=== PATIENT | male | born 1980 | race Caucasian/White ===

== ENCOUNTER 2018-11-19 21:38 | Emergency (ER) | payer SELFPAY ==
[~2018-11-19] VITALS: Ht 160 cm; Wt 67.1 kg
[2018-11-19 21:43] VITALS: BP 137/92
--- NOTE | 2018-11-19 22:15 | NUR ---
PT AMBULATED TO ER BED 04
--- NOTE | 2018-11-19 22:35 | NUR ---
PT TO ED WITH C/O EYE BURNING S/P SPRAY PAINT IN EYES. PT DENIES VISION LOSS. VISUAL ACUITY PERFOMRED. PT PLACED INTO BED, JULITA BORRERO. PMH--DENIES RX--DENIES
--- NOTE | 2018-11-19 22:45 | NUR ---
EYE WASH PERFROMED. PT TOLERATED WELL.
[2018-11-19 22:59] VITALS: BP 137/92
--- NOTE | 2018-11-19 22:59 | NUR ---
Patient discharged with v/s stable. Written and verbal after care instructions given and explained. Patient alert, oriented and verbalized understanding of instructions. Ambulatory with steady gait. All questions addressed prior to discharge. ID band removed. Patient advised to follow up with PMD. Rx of GENTAMYCIN given. Patient educated on indication of medication including possible reaction and side effects. Opportunity to ask questions provided and answered.
== END 2018-11-19 22:59 | disposition home or self-care (01) ==
LOC: MED 21:38
DX: T15.92XA Foreign body on external eye, part unspecified, left eye, initial encounter (principal); X58.XXXA Exposure to other specified factors, initial encounter; Y93.89 Activity, other specified; Y92.89 Other specified places as the place of occurrence of the external cause; Y99.8 Other external cause status
CPT/HCPCS: 99283